=== PATIENT | female | born 1990 | race American Indian/Alaskan Native ===

== ENCOUNTER 2019-09-05 21:58 | Emergency (ER) | payer MEDICAID ==
[2019-09-05 23:32] LABS: Bacteria,Urine 1+ /HPF (Negative); Bilirubin,Urine NEG (Negative); Blood,Urine LG (Negative); Color,Urine Yellow (Yellow); Mucus,Urine 2+ /HPF; Protein,Urine <15 mg/dL mg/dL (Negative)
[2019-09-05 23:36] LABS: Basophils % (Auto) 0.4 % (0.0-1.8); Eosinophils # (Auto) 0.1 K/mm3 (0.0-0.4); Eosinophils % (Auto) 1.7 % (0.0-4.3); Hematocrit 36.1 % (30.3-42.9); Hemoglobin 12.3 gm/dl (10.1-14.3); Lymphocytes # (Auto) 1.7 K/mm3 (1.2-5.4); Lymphocytes % (Auto) 27.1 % (13.4-35.0); Mean Corpuscular HGB Conc 34 % (30-34); Mean Corpuscular Volume 90 fl (79-97); Monocytes # (Auto) 0.5 K/mm3 (0.0-0.8); Monocytes % (Auto) 8.2 % (0.0-7.3); Platelet Count 189 K/mm3 (140-440); Red Cell Distribution Width 13.2 % (13.2-15.2)
--- NOTE | 2019-09-06 00:49 | Emergency Department Report ---
ED HPI - General Chief complaint: Vaginal Bleeding Stated complaint: BLEEDING DURING PREG Time Seen by Provider: 09/06/19 00:45 Source: patient Mode of arrival: Ambulatory Limitations: No Limitations - History of Present Illness Initial comments: Patient is a 28-year-old female that presents emergency room with complaints of a vaginal bleeding and abdominal pain. Patient states she is 6 weeks . Patient states she that the vaginal bleeding and pain started 1 hour prior to arrival. Patient states that she was recently diagnosed with a vaginal yeast infection and given miconazole vaginal suppositories and immediately after placing the ovule into the vagina the patient developed vaginal bleeding and abdominal pain. Patient states her abdominal pain is a 7 out of 10. Patient states it is a pressure in her lower abdomen. Patient states is better with rest and worse with movement. Patient states that she had her first OB a ppointment at [facility] and had an ultrasound which was positive for a single IUP. 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 denies: vaginal discharge, dysuria, headache, vision changes, malaise, dysparuenia, rash, seizure, shortness of breath, syncope, weakness Vaginal bleeding: light :: Yes Number of weeks : 6 OB History - Current : no complications OB History - Previous Pregnancies: gestational diabetes Pre- care: followed by OB - Related Data : 4 Para: 2 Ab: 1 Previous Rx's Medication Instructions Recorded Last Taken Type Acetaminophen/Codeine [Tylenol 1 tab PO Q4HR PRN #10 tablet 09/06/19 Unknown Rx /Codeine # 3 tab] Allergies Allergy/AdvReac Type Severity Reaction Status Date / Time morphine Allergy Severe Anaphylaxis Verified 09/05/19 22:32 meperidine [From Demerol] Allergy Anaphylaxis Verified 09/05/19 22:32 ED Review of Systems ROS: Stated complaint: BLEEDING DURING PREG Other details as noted in HPI Constitutional: denies: chills, fever Eyes: denies: eye pain, eye discharge, vision change ENT: denies: ear pain, throat pain Respiratory: denies: cough, shortness of breath, wheezing Cardiovascular: denies: chest pain, palpitations Endocrine: no symptoms reported Gastrointestinal: abdominal pain. denies: nausea, diarrhea Genitourinary: as per HPI. denies: urgency, dysuria, discharge Musculoskeletal: denies: back pain, joint swelling, arthralgia Skin: denies: rash, lesions Neurological: denies: headache, weakness, paresthesias Psychiatric: denies: anxiety, depression Hematological/Lymphatic: denies: easy bleeding, easy bruising ED Past Medical Hx - Past Medical History Previous Medical History?: Yes Hx Diabetes: Yes (gestational) Hx Asthma: Yes - Surgical History Past Surgical History?: No - Family History Family history: no significant - Social History Smoking Status: Former Smoker Substance Use Type: Alcohol - Medications Home Medications: Home Medications Medication Instructions Recorded Confirmed Last Taken Type Acetaminophen/Codeine [Tylenol 1 tab PO Q4HR PRN #10 tablet 09/06/19 Unknown Rx /Codeine # 3 tab] ED Physical Exam - General Limitations: No Limitations General appearance: alert, in no apparent distress - Head Head exam: Present: atraumatic, normocephalic - Eye Eye exam: Present: normal appearance - ENT ENT exam: Present: mucous membranes moist - Neck Neck exam: Present: normal inspection - Respiratory Respiratory exam: Present: normal lung sounds bilaterally. Absent: respiratory distress - Cardiovascular Cardiovascular Exam: Present: regular rate, normal rhythm. Absent: systolic murmur, diastolic murmur, rubs, gallop - GI/Abdominal GI/Abdominal exam: Present: soft, tenderness (Suprapubic tenderness.), normal bowel sounds - Extremities Exam Extremities exam: Present: normal inspection - Back Exam Back exam: Present: normal inspection - Neurological Exam Neurological exam: Present: alert, oriented X3 - Psychiatric Psychiatric exam: Present: normal affect, normal mood - Skin Skin exam: Present: warm, dry, intact, normal color. Absent: rash ED Course Vital Signs 09/05/19 22:27 Temperature 98.5 F Pulse Rate 81 Respiratory 18 Rate Blood Pressure 118/64 O2 Sat by Pulse 99 Oximetry - Reevaluation(s) Reevaluation #1: Patient's ultrasound was done. Patient states the pain is the same. 09/06/19 02:30 Reevaluation #2: I discussed all results and clinical findings with patient. I discussed plan of care with patient. Patient agrees with plan of care. Patient is stable for discharge. Patient will be discharged home. Patient given discharge instructions. Patient voiced understanding of discharge instructions. Patient states she can take Tylenol #3. 09/06/19 02:41 ED Medical Decision Making - Lab Data Result diagrams: 09/05/19 22:53 - Radiology Data Radiology results: report reviewed - Medical Decision Making Patient is a 28-year-old female that presents emergency room with complaints of vaginal bleeding after placing a vaginal suppository for miconazole. Patient was diagnosed with vaginal yeast infection off of the urinalysis in her [facility] office last week. Patient had ultrasound done which shows possible twins both intrauterine. Ultrasound also shows a complex left ovarian cyst. Pain is most likely coming from the left ovarian cyst. Patient's labs were unremarkable. Patient recommended not to take the miconazole until she follows up with her [facility]. - Differential Diagnosis Miscarriage, vaginal bleeding, threatened miscarriage. Critical care attestation.: If time is entered above; I have spent that time in minutes in the direct care of this critically ill patient, excluding procedure time. ED Disposition Clinical Impression: Ovarian cyst affecting in first trimester, antepartum, Vaginal bleeding before 22 weeks gestation Qualifiers: Weeks of gestation: less than 8 weeks Qualified Code(s): Z3A.01 - Less than 8 weeks gestation of Abdominal pain Qualifiers: Abdominal location: lower abdomen, unspecified Qualified Code(s): R10.30 - Lower abdominal pain, unspecified Disposition: DC-01 TO HOME OR SELFCARE Is pt being admited?: No Does the pt Need Aspirin: No Condition: Stable Instructions: Threatened Miscarriage (ED), (ED), Ovarian Cyst (ED), Abdominal Pain in (ED) Additional Instructions: Patient to follow-up with primary care in 2 to 3 days. Patient to follow-up with [facility] in 2 to 3 days. Nothing per vagina until cleared by her [facility]. Patient will need a follow-up visit with her [facility] for repeat ultrasound. Patient to rest. Patient to increase water. Patient to avoid strenuous exercise or heavy lifting until cleared by [facility]. Patient to take Tylenol as needed for pain. Patient to take meds as directed. Patient to return to the ER if condition worsens, changes or new symptoms arise. Prescriptions: Acetaminophen/Codeine [Tylenol /Codeine # 3 tab] 1 tab PO Q4HR PRN #10 tablet PRN Reason: Pain , Severe (7-10) Referrals: PRIMARY CARE, [Primary Care Provider] - 2-3 Days Time of Disposition: 02:46
--- NOTE | 2019-09-06 02:32 | Ultrasound Report ---
OB Ultrasound HISTORY: vaginal bleed pos preg. TECHNIQUE: Grayscale and color imaging performed. COMPARISON: None FINDINGS: There are 2 small cystic structures within the uterus, one is clearly tender than the other . The more dominant cystic structure demonstrates a mean diameter of 1.2 cm which would correspond wi th an EGA of 6 weeks and 0 days. The smaller structure demonstrates a mean diameter of 9 mm which wou ld correspond with an EGA of 5 weeks and 5 days. There is no pole or yolk sac identified. There is small amount of pelvic free fluid. Ovaries are normal in size with complex cyst in the left measuring 1.7 cm in maximal dimension. There is an adjacent calcification measuring 4 mm. IMPRESSION: 1. Two intrauterine cystic structures as outlined above with no clear pole or yolk sac identifi ed. Findings could be seen early in gestation and close follow-up is recommended with ultrasound and beta hCG. 2. Complex left ovarian cyst, likely functional. 3. Trace pelvic free fluid. Signer Name: Christian Marroquin MD Signed: 09/06/2019 2:28 AM Workstation Name: [id number]
[2019-09-06 02:59] VITALS: BP 132/85
== END 2019-09-06 02:59 | disposition home or self-care (01) ==
LOC: ED 21:58
DX: O34.81 Maternal care for other abnormalities of pelvic organs, first trimester (principal); O24.419 Gestational diabetes mellitus in pregnancy, unspecified control; O99.511 Diseases of the respiratory system complicating pregnancy, first trimester; N83.299 Other ovarian cyst, unspecified side; O20.8 Other hemorrhage in early pregnancy; Z3A.01 Less than 8 weeks gestation of pregnancy; Z87.891 Personal history of nicotine dependence; Z88.6 Allergy status to analgesic agent
CPT/HCPCS: 36415; 76801; 76817; 81001; 84702; 84703; 85025; 86900; 86901